=== PATIENT | female | born 1990 | race Native Hawaiian/Other Pacific Islander ===

== ENCOUNTER 2022-03-15 07:00 | Emergency (ER) | payer OTHER ==
[~2022-03-15] VITALS: Ht 160 cm; Wt 90.7 kg
[2022-03-15 07:03] VITALS: TEMP 97.3
[2022-03-15 07:36] LABS: PLATELET COUNT 256 K/uL (152-353)
[2022-03-15 07:41] LABS: POTASSIUM 3.9 mmol/L (3.6-5.2)
[2022-03-15 08:45] VITALS: BP 115/73
== END 2022-03-15 09:31 | disposition short-term general hospital (02) ==
LOC: ED 07:00
PROVIDERS: Family Medicine
DX: O60.02 Preterm labor without delivery, second trimester (principal); O23.42 Unspecified infection of urinary tract in pregnancy, second trimester; N39.0 Urinary tract infection, site not specified; Z3A.18 18 weeks gestation of pregnancy
CPT/HCPCS: 80053; 80307; 81000; 85027; 87077; 87086; 87088; 87186; 87490; 87590; 96360; 96365; 96375; 99285; J0696; J1885; J3475